=== PATIENT | male | born 1980 | race Caucasian/White ===

== ENCOUNTER 2017-03-19 16:23 | Emergency (ER) | payer SELFPAY ==
[~2017-03-19] VITALS: Ht 182.9 cm; Wt 102.3 kg
[2017-03-19] MEDS ORDERED: SODIUM CHLORIDE 0.9% 1,000 ML IV ONE ×2 (17:15)
[2017-03-19 17:46] LABS: BASOPHILS # (AUTO) 0.04 K/uL (0.00-0.20); BASOPHILS % (AUTO) 0.3 % (0.0-2.0); EOSINOPHILS # (AUTO) 0.01 K/uL (0.00-0.70); EOSINOPHILS % (AUTO) 0.06 % (1.0-6.0); HEMATOCRIT 52.4 % (41-53); HEMOGLOBIN 18.1 g/dL (13.5-17.5); LYMPHOCYTES # (AUTO) 2.1 K/uL (1.0-4.8); LYMPHOCYTES % (AUTO) 16.1 % (22.0-44.0); MEAN CORPUSCULAR HGB CONC 34.6 G/dL (31.0-37.0); MEAN CORPUSCULAR VOLUME 95 fL (80-100); MONOCYTES # (AUTO) 1.1 K/uL (0.1-1.0); NEUTROPHILS % (AUTO) 75.6 % (40.0-70.0); PLATELET COUNT (AUTO) 311 K/uL (150-450); RED CELL DISTRIBUTION WIDTH 12.5 % (11.5-14.5); WHITE BLOOD COUNT (AUTO) 13.2 K/uL (4.5-11.0)
[2017-03-19 18:06] LABS: ANION GAP 11 mmol/L (8-16); CALCIUM, TOTAL 10.6 mg/dL (8.8-10.5); CARBON DIOXIDE 30 mmol/L (22-29); CHLORIDE 103 mmol/L (98-107); CREATININE 0.96 mg/dL (0.60-1.30); GLOMERULAR FILTR. RATE CALC > 60 mL/min (>60); POTASSIUM 3.5 mmol/L (3.5-5.1); SODIUM SERUM 144 mmol/L (136-145); UREA NITROGEN, BLOOD 19 mg/dL (7-18)
[2017-03-19 18:12] LABS: ALANINE AMINOTRANSFERASE 92 U/L (12-78); ALBUMIN 4.8 g/dL (3.4-5.0); ASPARTATE AMINOTRANSFERASE 41 U/L (15-37); TOTAL PROTEIN, SERUM 8.6 g/dL (6.4-8.2)
[2017-03-19 18:13] LABS: LACTIC ACID 1.9 mmol/L (0.4-2.0)
[2017-03-19 18:14] LABS: ACETAMINOPHEN < 2 mcg/mL (10-30)
[2017-03-19 18:16] LABS: AMMONIA 14 umol/L (11-32)
[2017-03-19 18:21] LABS: TROPONIN I < 0.02 ng/mL (0.00-0.05)
[2017-03-19 18:35] LABS: SALICYLATE < 2.8 mg/dL (2.8-20.0)
[2017-03-19 18:38] LABS: INR 1.1 (0.9-1.1); PROTHROMBIN TIME 11.4 SEC (9.4-11.6)
[2017-03-19 20:45] VITALS: BP 132/74
== END 2017-03-19 21:17 | disposition short-term general hospital (02) ==
LOC: EMS 16:26
DX: I62.9 Nontraumatic intracranial hemorrhage, unspecified (principal); F17.210 Nicotine dependence, cigarettes, uncomplicated
CPT/HCPCS: 36415; 70450; 71010; 72125; 80053; 82140; 83605; 83690; 84484; 85025; 85610; 85730; 93005; 96360; 96361; 99291; G0480; J7030; G0481